=== PATIENT | female | born 1970 | race Caucasian/White ===

== ENCOUNTER → 2017-02-04 | Outpatient (CLI) | payer MEDICARE, OTHER ==
--- NOTE | 2017-02-05 14:45 | MM ---
Reason for exam: screening (asymptomatic). Last mammogram was performed 4 years ago. History: Patient is nulliparous. Family history of breast cancer in paternal grandmother. Physical Findings: A clinical breast exam by your physician is recommended on an annual basis and results should be correlated with mammographic findings. MG 3D Screening Mammo W/Cad Bilateral CC and MLO view(s) were taken. Prior study comparison: February 17, 2013, right diagnostic mammogram w/CAD. August 13, 2012, [facility] DIGITAL BILATERAL MAMMOGRAM w/CAD. The breast tissue is heterogeneously dense. This may lower the sensitivity of mammography. Finding: There are typically benign grouped/clustered calcifications in the middle position of the left breast. No significant changes in finding since February 17, 2013 and August 13, 2012. ASSESSMENT: Benign, BI-RAD 2 RECOMMENDATION: Routine screening mammogram of both breasts in 1 year.
== END | disposition home or self-care (01) ==
LOC: RADMAMWWP 14:45
PROVIDERS: ATTEND Family Medicine
DX: Z12.31 Encounter for screening mammogram for malignant neoplasm of breast (principal)
CPT/HCPCS: 77063; G0202

== ENCOUNTER → 2020-06-13 | Outpatient (CLI) | payer MEDICARE, OTHER ==
--- NOTE | 2020-06-13 15:21 | CONS ---
CONSULTATION Consultation note for trouble sleeping, possible obstructive sleep apnea. This is a 50-year-old female patient obese with features of obstructive sleep apnea yet she has various other comorbidities including ADD, hypertension, hyperlipidemia, RLS, iron deficiency and history of scoliosis. She does have issues with initiation and maintaining sleep. In terms of her sleep initiation, she has done some measures where she has been using tunes and relaxation techniques to get herself into sleep and she is able to generate sleep within 30 minutes and sometimes slightly more. She goes to bed around 11:30 p.m. However after falling sleep, she would wake up on multiple occasions. Ultimately she gets out of bed at around 8:30 a.m. in the morning. She tries not to take any naps during the day. She snores. She is quite uncomfortable. She is restless. She twitches and at times she wakes up because of discomfort in her hip which makes her quite uncomfortable and she has to reposition herself. She tries not to take naps, although she has done naps in the past. She is tired and fatigued throughout the day. No sleep paralysis. No hallucinations or cataplexy. She has history of ADD and she is on Strattera for now. In terms of her restlessness and twitching, she has been taking Requip 0.25 mg at bedtime. No recent weight gain or weight loss. No nocturnal chest pain or heartburn or shortness of breath. No episodes of waking up choking or gasping sensation. She has an irritable bladder and she wakes up in the morning and she tries to empty her bladder and she empties her bladder prior to going to sleep. PAST MEDICAL HISTORY: Attention deficit disorder, hypertension, hyperlipidemia, obesity, iron deficiency, vitamin D deficiency, irritable bladder, RLS, scoliosis and obesity. PAST SURGICAL HISTORY: Past surgical history includes tubes in her ears. DRUG ALLERGIES: CODEINE. OUTPATIENT MEDICATION LIST: Outpatient medication list includes: Strattera 60 mg p.o. daily, Nexium 40 mg p.o. daily, lisinopril 20 mg p.o. daily, multivitamin 1 tablet a day, fiber 1 tablet a day, Lipitor 20 mg p.o. daily, Requip 0.25 mg at bedtime, hydroxyzine 50 mg at bedtime as needed. SOCIAL HISTORY: The patient is a nonsmoker. No history of alcoholism. No history of IV drugs. FAMILY HISTORY: Her grandmother had cancer, unknown. Her father insomnia. Father had heart disease and coronary artery disease. REVIEW OF SYSTEMS: Fourteen-point review of system was done and positive findings are mentioned in history of present illness. PHYSICAL EXAMINATION: VITAL SIGNS: BP is 170/95, pulse 80, respirations 16, temperature 97.8, saturation 97% on room air. Height is 5 feet 1 inch. Weight is 198 and BMI 37.4. Neck size 15 inches. GENERAL APPEARANCE: Obese, calm, comfortable. HEAD: Atraumatic, normocephalic. NECK: Supple. There is no JVD. No goiter or neck masses, Mallampati class 4. She has micrognathia, some few chipped teeth can be also inspected. LUNGS: Diminished otherwise clear. HEART: Sounds are regular rate and rhythm. Normal S1, S2. No S3, no S4. No murmurs. ABDOMEN: Soft, nontender. No organomegaly. EXTREMITIES: No edema. No cyanosis or clubbing. IMPRESSION: 1. Sleep onset and maintenance insomnia. Comorbidities are many. Possible obstructive sleep apnea based on anatomic features and obesity and narrow neck with significant crowding of posterior pharynx with a Mallampati class 4. Nevertheless, other comorbidities could fragment her sleep in addition, which include pain, arthritis, restless legs syndrome. 2. History of attention deficit disorder. 3. Hyperlipidemia. 4. Hypertension. 5. Obesity with a body mass index of 37.4. 6. Irritable bladder. 7. Scoliosis. 8. History of restless legs syndrome maintained on Requip. PLAN: Will need a full polysomnogram to characterize her sleep quality. We need to look at her sleep onset, sleep maintenance, sleep efficiency and rule out any sleep breathing disorder and look for comorbidities that may fragment her sleep. Based on that, we will make further recommendations. Encourage weight loss. Optimize sleep hygiene measures. Continue with the measures that promote sleep which includes relaxation techniques and music therapy. Keep same medication. Will continue to follow. MMODL / IJN: [id number] /
== END | disposition home or self-care (01) ==
LOC: SLEEP 11:30
PROVIDERS: ATTEND Internal Medicine Critical Care Medicine
DX: G47.00 Insomnia, unspecified (principal); G25.81 Restless legs syndrome; M19.90 Unspecified osteoarthritis, unspecified site; E78.5 Hyperlipidemia, unspecified; I10 Essential (primary) hypertension; N32.89 Other specified disorders of bladder; M41.9 Scoliosis, unspecified; E66.9 Obesity, unspecified; Z68.37 Body mass index [BMI] 37.0-37.9, adult; Z86.59 Personal history of other mental and behavioral disorders; Z79.899 Other long term (current) drug therapy
CPT/HCPCS: 99211

== ENCOUNTER → 2020-09-27 | Outpatient (CLI) | payer MEDICARE, OTHER ==
[2020-09-27 14:38] VITALS: BP 145/96; PULSE 80; RESP 18; TEMP 97.8; BMI 36.6
--- NOTE | 2020-09-27 14:59 | P.HPBAR ---
Bariatric H&P - History & Physicial H&P Date: 09/27/20 History & Physicial: Visit/CC: initial visit Patient initial contact: Initial weight: Initial weight in pounds: Height: 5 ft 1 in Initial BMI: Last weight: Current weight: 87.997 kg Current weight in pounds: 194.00 Current BMI: 36.6 [place] body weight (based on NIH guidelines): 47.627 kg Excess body weight loss: The patient is a 50 year-old F who presents for Bariatric Assessment. DATE OF SERVICE: 09/27/2020 REASON FOR CONSULTATION: Initial bariatric evaluation. HISTORY OF PRESENT ILLNESS: Bernice Lopez is a 50-year-old female who comes with lifelong morbid obesity. She is looking into the gastric bypass. Her hi ghest weight is 203 pounds. She has tried weight loss of Slim Fast, Atkins diet. Her mother had obesity but now passed. She has family history of diabetes. She has diabetes. She has lifelong trouble with weight lost. She has heartburn. She denies surgery to the abdomen. She denies ulcerative colitis or Crohns disease. She had an upper scope in the past. She reports gastroesophageal reflux disease. She has lower back pain, scoliosis, hip pain right side, left knee pain, and has ankle pain. She has foot pain, bilateral. She reports heel spurs. Grandmother had breast cancer and aunt had cancer. She wants to get down to 150 pounds. She takes over the counter keto burn diet pills in the morning. She has thyroid problems. She wears a pain patch and reports it works. She developed hypertension as a result of her obesity. She present to me for the first time in consultation for morbid obesity. At height of 5 feet 1 inches, her ideal body weight is 131 pounds. Her highest weight is 203 pounds, BMI 38.4. She comes in 194 pounds. Her body mass index is 36.7. She is 63 pounds overweight. PAST MEDICAL HISTORY: 1. Morbid obesity due to excess calories 2. Body mass index of 38.4, initial 3. ADHD 4. Hyperlipidemia 5. Gastroesophageal reflux diseae 6. Hypertensive heart disease 7. Restless leg syndrome 8. Overactive bladder 9. Diabetes type II 10. Osteoarthritis lower back 11. Osteoarthritis right hip pain 12. Osteoarthritis left knee 13. Osteoarthritis ankle 14. Osteoarthritis bilateral feet 15. Thyroid disorder 16. Chronic pain syndrome 17. Scoliosis PAST SURGICAL HISTORY: 1. Tonsillectomy 2. Ear surgery HOME MEDICATIONS: Home Medications Medication Instructions Recorded Confirmed Atomoxetine HCl [Strattera] 60 mg PO DAILY 09/27/20 11/02/20 Atorvastatin [Lipitor] 10 mg PO PC-SUPPER 09/27/20 11/02/20 Esomeprazole Magnesium [NexIUM] 40 mg PO DAILY 09/27/20 11/02/20 Lisinopril [Prinivil] 20 mg PO DAILY 09/27/20 11/02/20 Multivitamins, Thera [Multivitamin 1 tab PO DAILY 09/27/20 11/02/20 (formulary)] Vitamin C/Biotin [Hair, Skin and 1 tab PO DAILY 09/27/20 11/02/20 Nails] hydrOXYzine HCL [Atarax] 50 mg PO HS 09/27/20 11/02/20 rOPINIRole HCL [Requip] 0.25 mg PO HS 09/27/20 11/02/20 Biotin 10,000 mcg PO DAILY 11/02/20 11/02/20 Fiber Supplement 4 tab PO DAILY 11/02/20 11/02/20 Keto Boost 1 tab PO QAM 11/02/20 11/02/20 Tolterodine ER [Detrol LA] 4 mg PO DAILY 11/02/20 11/02/20 ALLERGIES: Allergies Allergy/AdvReac Type Severity Reaction Status Date / Time codeine Allergy Unknown Verified 11/02/20 11:08 SOCIAL HISTORY: Denies past tobacco use. FAMILY HISTORY: No family history of ulcerative colitis disease or Crohn's disease. Family history of morbid obesity. No lupus in the family. No reports of stomach or esophageal cancer. Her mother had obesity but now passed. She has family history of diabetes. Grandmother had breast cancer and aunt had cancer. REVIEW OF ORGAN SYSTEMS: CONSTITUTIONAL: At height of 5 feet 1 inches, her ideal body weight is 131 pound s. Her highest weight is 203 pounds, BMI 38.4. She comes in 194 pounds. Her body mass index is 36.7. She is 63 pounds overweight. HEENT: Denies any active troubles with vision. Has deafness. ENDOCRINE: Has diabetes type 2. Has hypothyroidism. CARDIOVASCULAR: Denies reports of palpitations or heart attacks or chest pain. Has hypertensive heart disease. Has hyperlipidemia. RESPIRATORY: Has daytime somnolence. Has obstructive sleep apnea. GASTROINTESTINAL: Denies any bright red blood per rectum. No diarrhea. No constipation. Has gastroesophageal reflux disease. GENITOURINARY: Has bladder urgency. No recent blood in urine MUSCULOSKELETAL: Has lower back pain and joint pain. Has restless leg syndrome. Has scoliosis. NEURO: No headaches. No seizure disorders. Has neuropathy. PSYCH: Denies depression. No suicidal ideation. RHEUMATOLOGIC: No lupus. No rheumatoid arthritis. HEMATOLOGIC: Denies any abnormal bleeding or bruising. SKIN: No rash. No skin cancer. PHYSICAL EXAM: VITAL SIGNS: Height 5 foot 1 inches, weight 194 pounds. BMI 36.7 Vital Signs Temp 97.8 F 09/27/20 14:21 Pulse 80 09/27/20 14:21 Resp 18 09/27/20 14:21 BP 145/96 09/27/20 14:21 Pulse Ox GENERAL: Well-developed in no acute distress. HEENT: No scleral icterus. Extraocular movements grossly intact. Hears conversational speech. No nasal drainage. NECK: Supple without lymphadenopathy. CHEST: Nonlabored respirations with equal bilateral excursions. CARDIOVASCULAR: Regular rate and regular rhythm. Distal 2+ pulses. ABDOMEN: Obese, soft, nontender, nondistended. MUSCULOSKELETAL: No clubbing, cyanosis. NEURO: No focal or lateralizing signs. Cranial nerves 2 through 12 grossly within normal limits. PSYCH: Appropriate affect. Alert and oriented to person, place and time. SKIN: Good skin turgor. Well perfused. ASSESSMENT: 1. Morbid obesity due to excess calories 2. Body mass index of 38.4, initial 3. ADHD 4. Hyperlipidemia 5. Gastroesophageal reflux diseae 6. Hypertensive heart disease 7. Restless leg syndrome 8. Overactive bladder 9. Diabetes type II 10. Osteoarthritis lower back 11. Osteoarthritis right hip pain 12. Osteoarthritis left knee 13. Osteoarthritis ankle 14. Osteoarthritis bilateral feet 15. Thyroid disorder 16. Chronic pain syndrome 17. Scoliosis PLAN: 1. Surgical options including a band, gastric bypass, sleeve gastrectomy were described in detail. Alternatives such as gastric balloon including duodenal sw itch were described. She is looking into the gastric bypass. 2. The [place] bariatric surgical collaborative data and outcomes calculator were described with surgical options. 3. Recommend a bariatric metabolic panel to evaluate for micro- including macronutrient deficiencies. 4. For history of daytime somnolence, recommend evaluation and treatment for sleep apnea. 5. Dietary surveillance and counseling was reviewed. Increased protein intake over 65 grams daily advised. 6. Will need cardiac risk assessment. 7. Recommend medical risk assessment. 8. Psych assessment per insurance guidelines. 9. Recommend upper endoscopy. 10. Recommend 12-lead EKG. 11. Recommend esophagram 12. Recommend urine nicotine testing for history of tobacco abuse disorder 13. Recommend urine drug screen Thank you for this consultation. Past Medical History Past Medical History: Diabetes Mellitus, GERD/Reflux, Hearing Disorder / Deafness, Hyperlipidemia, Hypertension, Sleep Apnea/CPAP/BIPAP, Thyroid Disorder Additional Past Medical History / Comment(s): DM type 1. hypothyroidism. hearing aid bilat. History of Any Multi-Drug Resistant Organisms: None Reported Past Surgical History: Ear Surgery, Tonsillectomy Additional Past Surgical History / Comment(s): tubes in ears bilateral. Past Anesthesia/Blood Transfusion Reactions: No Reported Reaction Past Psychological History: ADD/ADHD Smoking Status: Never smoker, Second hand smoke exposure Past Alcohol Use History: None Reported Past Drug Use History: None Reported Surgical - Exam Vital Signs Temp Pulse Resp BP 97.8 F 80 18 145/96 09/27/20 14:21 09/27/20 14:21 09/27/20 14:21 09/27/20 14:21 Results - Labs 09/27/20 15:12 09/27/20 15:12 Bariatric Checklist Checklist: Plan: Checklist: EGD: 1. Hiatal hernia: 2. H. Pylori: HgbA1c: Vitamin D: Smoking: Primary care physician referral: Dr. Paez ([place]) Psychiatry clearance: Cardiology clearance: Sleep study: Diet journal: VTE risk score: VTE risk level: Rehab needs at discharge:
[2020-09-27 15:59] LABS: HCT 43.8 % (34.0-46.0); MCH 29.4 pg (25.0-35.0); MCHC 34.2 g/dL (31.0-37.0); MCV 86.1 fL (80.0-100.0); Platelet Count 273 k/uL (150-450); RBC 5.09 m/uL (3.80-5.40); RDW 13.4 % (11.5-15.5); WBC 7.6 k/uL (3.8-10.6)
[2020-09-28 00:13] LABS: INR 0.95 (0.90-1.11); Partial Thromboplastin Time 27.6 sec (23.5-31.0); Prothrombin Time 10.4 sec (9.9-11.9)
[2020-09-28 10:15] LABS: Ferritin 52.6 ng/mL (10.0-291.0)
[2020-09-28 11:00] LABS: % Iron Saturation 21.95 (12.00-45.00); ALT 33 U/L (8-44); AST 31 U/L (13-35); African American GFR (CKD) 77.2 (60.0-200.0); Albumin/Globulin Ratio 2.35 (1.60-3.17); Alkaline Phosphatase 137 U/L (41-126); Calcium 9.7 mg/dL (8.7-10.3); Carbon Dioxide 26.2 mmol/L (21.6-31.8); Chloride 104 mmol/L (96-109); Chol/HDL Ratio 3.73; Cholesterol 190 mg/dL (0-200); Folate, Serum >24.0 ng/mL; Glucose 133 mg/dL (70-110); Iron 72 ug/dL (50-170); LDL Cholesterol,Calculated 101.4 mg/dL (0.0-131.0); Magnesium 2.1 mg/dL (1.5-2.4); Non-African American GFR(CKD) 66.6 (60.0-200.0); Phosphorus 3.5 mg/dL (2.4-5.1); Potassium 3.8 mmol/L (3.5-5.5); Sodium 142 mmol/L (135-145); Total Bilirubin 0.5 mg/dL (0.3-1.2); Total Iron Binding Capacity 328 ug/dL (228-460); Total Protein 6.7 g/dL (6.2-8.2)
[2020-09-28 14:27] LABS: Zinc, Serum 78 ug/dL (60-130)
[2020-09-29 07:19] LABS: Vitamin A 63 ug/dL (38-106)
[2020-09-29 13:23] LABS: Vit B1(Thiamine) 95 ug/L (38-122)
[2020-09-29 16:17] LABS: Anabasine Urine <2.0 ng/mL (<2.0)
[2020-10-05 03:27] LABS: Selenium 113 mcg/L (63-160)
== END | disposition home or self-care (01) ==
LOC: BARWHC3 12:59
PROVIDERS: ATTEND Surgery Plastic and Reconstructive Surgery
DX: E66.01 Morbid (severe) obesity due to excess calories (principal); E78.5 Hyperlipidemia, unspecified; K21.9 Gastro-esophageal reflux disease without esophagitis; E11.9 Type 2 diabetes mellitus without complications; I11.9 Hypertensive heart disease without heart failure; F90.9 Attention-deficit hyperactivity disorder, unspecified type; N32.81 Overactive bladder; G47.61 Periodic limb movement disorder; M47.9 Spondylosis, unspecified; M16.11 Unilateral primary osteoarthritis, right hip; M17.12 Unilateral primary osteoarthritis, left knee; M19.071 Primary osteoarthritis, right ankle and foot; M19.072 Primary osteoarthritis, left ankle and foot; G89.4 Chronic pain syndrome; M41.9 Scoliosis, unspecified; E03.9 Hypothyroidism, unspecified; Z88.2 Allergy status to sulfonamides; Z79.899 Other long term (current) drug therapy
CPT/HCPCS: 84255; 84134; 84425; 80061; 80053; 82607; 82728; 82525; 82746; 83540; 83550; 83735; 84100; 84443; 84590; 84630; 85027; 85610; 85730; 82306; 83970; 83036; 93005; G0480; G0463; 80323; 99203

== ENCOUNTER 2020-11-06 07:18 | Day surgery (SDC) | payer MEDICARE, OTHER ==
[2020-11-02 11:25] VITALS: BMI 36.1
[~2020-11-06 07:18] MED LIST: LACTATED RINGERS 1,000 ML IV SCH; LIDOCAINE 1% (10MG/ML) FOR IV START INTRADERMA PRN
[2020-11-06 07:54] VITALS: RESP 16; TEMP 98.7
--- NOTE | 2020-11-06 08:04 | P.GSHP ---
History of Present Illness H&P Date: 11/06/20 CHIEF COMPLAINT: GERD HISTORY OF PRESENT ILLNESS: The patient is a 50-year-old female who presents reports gastroesophageal reflux disease. Upper endoscopy was offered for further evaluation and management. PAST MEDICAL HISTORY: Please see list. PAST SURGICAL HISTORY: Please see list. MEDICATIONS: Please see list. ALLERGIES: Please see list. SOCIAL HISTORY: No illicit drug use FAMILY HISTORY: No reports of Crohn disease or ulcerative colitis. REVIEW OF ORGAN SYSTEMS: CONSTITUTIONAL: No reports of fevers or chills. GI: Denies any blood in stools or constipation. PHYSICAL EXAM: VITAL SIGNS: Stable GENERAL: Well-developed and pleasant in no acute distress. HEENT: No scleral icterus. Extraocular movements grossly intact. Moist buccal mucosa. NECK: Supple without lymphadenopathy. CHEST: Unlabored respirations. Equal bilateral excursions. CARDIOVASCULAR: Regular rate and rhythm. Distal 2+ pulses. ABDOMEN: Soft, nondistended. MUSCULOSKELETAL: No clubbing, cyanosis, or edema. ASSESSMENT: 1. Gastroesophageal reflux disease PLAN: 1. Recommend proceeding with an upper endoscopy Past Medical History Past Medical History: GERD/Reflux, Hearing Disorder / Deafness, Hyperlipidemia, Hypertension, Osteoarthritis (OA), Skin Disorder, Thyroid Disorder Additional Past Medical History / Comment(s): constipation, psoriasis, History of Any Multi-Drug Resistant Organisms: None Reported Past Surgical History: Ear Surgery Additional Past Surgical History / Comment(s): tubes in ears bilateral. Past Anesthesia/Blood Transfusion Reactions: No Reported Reaction Past Psychological History: ADD/ADHD, Anxiety Smoking Status: Never smoker Past Alcohol Use History: None Reported Past Drug Use History: None Reported - Past Family History Mother Family Medical History: No Reported History Medications and Allergies Home Medications Medication Instructions Recorded Confirmed Type Atomoxetine HCl [Strattera] 60 mg PO DAILY 09/27/20 11/02/20 History Atorvastatin [Lipitor] 10 mg PO PC-SUPPER 09/27/20 11/02/20 History Esomeprazole Magnesium [NexIUM] 40 mg PO DAILY 09/27/20 11/02/20 History Lisinopril [Prinivil] 20 mg PO DAILY 09/27/20 11/02/20 History Multivitamins, Thera [Multivitamin 1 tab PO DAILY 09/27/20 11/02/20 History (formulary)] Vitamin C/Biotin [Hair, Skin and 1 tab PO DAILY 09/27/20 11/02/20 History Nails] hydrOXYzine HCL [Atarax] 50 mg PO HS 09/27/20 11/02/20 History rOPINIRole HCL [Requip] 0.25 mg PO HS 09/27/20 11/02/20 History Biotin 10,000 mcg PO DAILY 11/02/20 11/02/20 History Fiber Supplement 4 tab PO DAILY 11/02/20 11/02/20 History Keto Boost 1 tab PO QAM 11/02/20 11/02/20 History Tolterodine ER [Detrol LA] 4 mg PO DAILY 11/02/20 11/02/20 History Allergies Allergy/AdvReac Type Severity Reaction Status Date / Time codeine Allergy Unknown Verified 11/02/20 11:08 Surgical - Exam Vital Signs Temp Pulse Resp BP Pulse Ox 98.7 F 73 16 151/92 98 11/06/20 07:53 11/06/20 07:53 11/06/20 07:53 11/06/20 07:53 11/06/20 07:53
[2020-11-06] MEDS ORDERED: LACTATED RINGERS 1,000 ML IV ONE ×2 (08:08)
[2020-11-06] MEDS ORDERED: LIDOCAINE 1% INJ 10MG/ML (20 ML MDV) ONE (08:09)
[2020-11-06] MEDS ORDERED: PROPOFOL 10 MG/ML 20 ML VIAL IV ONE (08:09)
--- NOTE | 2020-11-06 08:44 | P.PCN ---
Date of Procedure: 11/06/20 Description of Procedure: PREOPERATIVE DIAGNOSIS: Gastroesophageal reflux disease. Morbid obesity. POSTOPERATIVE DIAGNOSIS: Morbid obesity. Gastritis. Gastroesophageal reflux disease. Gastroparesis OPERATION: Esophagogastroduodenoscopy with biopsies along antrum. SURGEON: Ольга Pierre MD ANESTHESIA: MAC. INDICATIONS: The patient is a 50-year-old female who presents with a history of reflux disease. Benefits and risks of the procedure were described. Informed consent was obtained. DESCRIPTION: The patient was brought into the endoscopy suite and laid in the left lateral decubitus position. An Olympus gastroscope was passed along the posterior oropharynx down to the distal esophagus where the squamocolumnar junction was encountered at 35 cm from the incisors. The stomach was entered and no bile reflux was found. Additional findings are listed below. Biopsies with cold forceps were obtained of the antrum. The first through third portion of the duodenum was examined and unremarkable. Retroflexion of the scope confirmed Hill grade 2 lower esophageal valve. The squamocolumnar junction demonstrated LA grade A erosive esophagitis. The stomach was desufflated. The patient tolerated the procedure well. FINDINGS: Squamocolumnar junction 35 cm from the incisors. Diaphragmatic hiatus at 35 cm. Moderate retained food suspicious for gastroparesis Hill grade 2 lower esophageal valve. LA grade A erosive esophagitis. No active duodenitis. Chronic gastritis RECOMMENDATIONS: Upper endoscopy as needed. Plan - Discharge Summary New Discharge Prescriptions: Continue Lisinopril [Prinivil] 20 mg PO DAILY Esomeprazole Magnesium [NexIUM] 40 mg PO DAILY hydrOXYzine HCL [Atarax] 50 mg PO HS Atomoxetine HCl [Strattera] 60 mg PO DAILY Biotin 10,000 mcg PO DAILY Keto Boost 1 tab PO QAM Vitamin C/Biotin [Hair, Skin and Nails] 1 tab PO DAILY Multivitamins, Thera [Multivitamin (formulary)] 1 tab PO DAILY Atorvastatin [Lipitor] 10 mg PO PC-SUPPER rOPINIRole HCL [Requip] 0.25 mg PO HS Tolterodine ER [Detrol LA] 4 mg PO DAILY Fiber Supplement 4 tab PO DAILY Discharge Medication List Atomoxetine HCl [Strattera] 60 mg PO DAILY 09/27/20 [History] Atorvastatin [Lipitor] 10 mg PO PC-SUPPER 09/27/20 [History] Esomeprazole Magnesium [NexIUM] 40 mg PO DAILY 09/27/20 [History] Lisinopril [Prinivil] 20 mg PO DAILY 09/27/20 [History] Multivitamins, Thera [Multivitamin (formulary)] 1 tab PO DAILY 09/27/20 [History] Vitamin C/Biotin [Hair, Skin and Nails] 1 tab PO DAILY 09/27/20 [History] hydrOXYzine HCL [Atarax] 50 mg PO HS 09/27/20 [History] rOPINIRole HCL [Requip] 0.25 mg PO HS 09/27/20 [History] Biotin 10,000 mcg PO DAILY 11/02/20 [History] Fiber Supplement 4 tab PO DAILY 11/02/20 [History] Keto Boost 1 tab PO QAM 11/02/20 [History] Tolterodine ER [Detrol LA] 4 mg PO DAILY 11/02/20 [History] [place] [facility]20 Patient Instructions/Handouts: Gastritis (ED), Gastroparesis (DC) Discharge Disposition: HOME SELF-CARE
[2020-11-06 08:52] VITALS: BP 131/91; PULSE 66
== END 2020-11-06 09:26 | disposition home or self-care (01) ==
LOC: ORWHC2ENDO 07:18
PROVIDERS: ATTEND Surgery Plastic and Reconstructive Surgery
DX: K21.9 Gastro-esophageal reflux disease without esophagitis (principal); K29.50 Unspecified chronic gastritis without bleeding; K31.84 Gastroparesis; E78.5 Hyperlipidemia, unspecified; I10 Essential (primary) hypertension; M19.90 Unspecified osteoarthritis, unspecified site; E07.9 Disorder of thyroid, unspecified; L40.9 Psoriasis, unspecified; F41.9 Anxiety disorder, unspecified; F90.9 Attention-deficit hyperactivity disorder, unspecified type; Z79.899 Other long term (current) drug therapy; Z88.5 Allergy status to narcotic agent
CPT/HCPCS: 81025; 88305; 43239; J2001; J2704

== ENCOUNTER → 2020-11-29 | Outpatient (CLI) | payer MEDICARE, OTHER ==
[2020-11-29 14:47] VITALS: BP 137/91; PULSE 85; RESP 18; TEMP 97.9; BMI 36.4
--- NOTE | 2020-11-29 15:07 | P.PN ---
Subjective Progress Note Date: 11/29/20 DATE OF SERVICE: 11/29/2020 CHIEF COMPLAINT: Morbid obesity HISTORY OF PRESENT ILLNESS: Bernice Lopez is a 50-year-old female who comes with lifelong morbid obesity. She is looking into the gastric bypass. She has lower back pain, scoliosis, hip pain right side, left knee pain, and has ankle pain. She developed hypertension as a result of her obesity. She has severe gastroesophageal reflux disease. She is pending psych clearance. She has diabetes type II as well. She is pending stress test. She presents today for further management of her morbid obesity. At height of 5 feet 1 inches, her ideal body weight is 131 pounds. Her highest weight is 203 pounds, BMI 38.4. She comes in 192 pounds from 194 pounds, 2 months ago. She has lost 1 pound in 2 months. Her body mass index is 36.5. She is 62 pounds overweight. PAST MEDICAL HISTORY: 1. Morbid obesity due to excess calories 2. Body mass index of 38.4, initial 3. ADHD 4. Hyperlipidemia 5. Gastroesophageal reflux diseae 6. Hypertensive heart disease 7. Restless leg syndrome 8. Overactive bladder 9. Diabetes type II 10. Osteoarthritis lower back 11. Osteoarthritis right hip pain 12. Osteoarthritis left knee 13. Osteoarthritis ankle 14. Osteoarthritis bilateral feet 15. Thyroid disorder 16. Chronic pain syndrome 17. Scoliosis PAST SURGICAL HISTORY: 1. Tonsillectomy 2. Ear surgery HOME MEDICATIONS: Home Medications Medication Instructions Recorded Confirmed Atomoxetine HCl [Strattera] 60 mg PO DAILY 09/27/20 11/02/20 Atorvastatin [Lipitor] 10 mg PO PC-SUPPER 09/27/20 11/02/20 Esomeprazole Magnesium [NexIUM] 40 mg PO DAILY 09/27/20 11/02/20 Lisinopril [Prinivil] 20 mg PO DAILY 09/27/20 11/02/20 Multivitamins, Thera [Multivitamin 1 tab PO DAILY 09/27/20 11/02/20 (formulary)] Vitamin C/Biotin [Hair, Skin and 1 tab PO DAILY 09/27/20 11/02/20 Nails] hydrOXYzine HCL [Atarax] 50 mg PO HS 09/27/20 11/02/20 rOPINIRole HCL [Requip] 0.25 mg PO HS 09/27/20 11/02/20 Biotin 10,000 mcg PO DAILY 11/02/20 11/02/20 Fiber Supplement 4 tab PO DAILY 11/02/20 11/02/20 Keto Boost 1 tab PO QAM 11/02/20 11/02/20 Tolterodine ER [Detrol LA] 4 mg PO DAILY 11/02/20 11/02/20 ALLERGIES: Allergies Allergy/AdvReac Type Severity Reaction Status Date / Time codeine Allergy Unknown Verified 11/02/20 11:08 SOCIAL HISTORY: Denies past tobacco use. FAMILY HISTORY: No family history of ulcerative colitis disease or Crohn's disease. Family history of morbid obesity. No lupus in the family. No reports of stomach or esophageal cancer. Her mother had obesity but now passed. She has family history of diabetes. Grandmother had breast cancer and aunt had cancer. REVIEW OF ORGAN SYSTEMS: CONSTITUTIONAL: At height of 5 feet 1 inches, her ideal body weight is 131 pounds. Her highest weight is 203 pounds, BMI 38.4. She comes in 194 pounds. Her body mass index is 36.7. She is 63 pounds overweight. HEENT: Denies any active troubles with vision. Has deafness. ENDOCRINE: Has diabetes type 2. Has hypothyroidism. CARDIOVASCULAR: Denies reports of palpitations or heart attacks or chest pain. Has hypertensive heart disease. Has hyperlipidemia. RESPIRATORY: Has daytime somnolence. Has obstructive sleep apnea. GASTROINTESTINAL: Denies any bright red blood per rectum. No diarrhea. No constipation. Has gastroesophageal reflux disease. GENITOURINARY: Has bladder urgency. No recent blood in urine MUSCULOSKELETAL: Has lower back pain and joint pain. Has restless leg syndrome. Has scoliosis. NEURO: No headaches. No seizure disorders. Has neuropathy. PSYCH: Denies depression. No suicidal ideation. RHEUMATOLOGIC: No lupus. No rheumatoid arthritis. HEMATOLOGIC: Denies any abnormal bleeding or bruising. SKIN: No rash. No skin cancer. PHYSICAL EXAM: VITAL SIGNS: Height 5 foot 1 inches, weight 193 pounds. BMI 36.5 Vital Signs Temp 97.9 F 11/29/20 14:40 Pulse 85 11/29/20 14:40 Resp 18 11/29/20 14:40 BP 137/91 11/29/20 14:40 Pulse Ox GENERAL: Well-developed in no acute distress. HEENT: No scleral icterus. Extraocular movements grossly intact. Hears conversational speech. No nasal drainage. NECK: Supple without lymphadenopathy. CHEST: Nonlabored respirations with equal bilateral excursions. CARDIOVASCULAR: Regular rate and regular rhythm. Distal 2+ pulses. ABDOMEN: Obese, soft, nontender, nondistended. MUSCULOSKELETAL: No clubbing, cyanosis. NEURO: No focal or lateralizing signs. Cranial nerves 2 through 12 grossly within normal limits. PSYCH: Appropriate affect. Alert and oriented to person, place and time. SKIN: Good skin turgor. Well perfused. LABS: Reviewed. Hgb A1c 6.0 and controlled. Triglycerides elevated. Vitamins without deficiences. EKG: Anterior infarct, age undetermined EGD FINDINGS: Squamocolumnar junction 35 cm from the incisors. Diaphragmatic hiatus at 35 cm. Moderate retained food suspicious for gastroparesis Hill grade 2 lower esophageal valve. LA grade A erosive esophagitis. No active duodenitis. Chronic gastritis Final Pathologic Diagnosis GASTRIC ANTRUM, BIOPSY: Minimal chronic gastritis. Helicobacter pylori organisms are not identified on routine H+E sections. ASSESSMENT: 1. Morbid obesity due to excess calories 2. Body mass index of 38.4, initial to 36.5 3. ADHD 4. Hyperlipidemia 5. Gastroesophageal reflux diseae 6. Hypertensive heart disease 7. Restless leg syndrome 8. Overactive bladder 9. Diabetes type II 10. Osteoarthritis lower back 11. Osteoarthritis right hip pain 12. Osteoarthritis left knee 13. Osteoarthritis ankle 14. Osteoarthritis bilateral feet 15. Thyroid disorder 16. Chronic pain syndrome 17. Scoliosis 18. Gastroparesis PLAN: 1. Her EKG was abnormal and she is pending stress test. 2. Hgb A1c is elevated but controlled for diabetes mellitus. 3. She has poor gastroesophageal reflux disease. At this time, she is looking into gastric bypass. 4. Recommend bariatric procedure for her severe gastroesophageal reflux disease, diabetes, and gastroparesis. Thank you for this consultation. Objective - Vital Signs Vital signs: Vital Signs Temp 97.9 F 11/29/20 14:40 Pulse 85 11/29/20 14:40 Resp 18 11/29/20 14:40 BP 137/91 11/29/20 14:40 Pulse Ox Intake & Output 11/28/20 11/29/20 11/29/20 18:59 06:59 18:59 Weight 87.543 kg
== END ==
LOC: BARWHC3 14:31
PROVIDERS: ATTEND Surgery Plastic and Reconstructive Surgery
DX: E66.01 Morbid (severe) obesity due to excess calories (principal); F90.9 Attention-deficit hyperactivity disorder, unspecified type; E78.5 Hyperlipidemia, unspecified; K21.9 Gastro-esophageal reflux disease without esophagitis; I11.9 Hypertensive heart disease without heart failure; G25.81 Restless legs syndrome; N32.81 Overactive bladder; M47.816 Spondylosis without myelopathy or radiculopathy, lumbar region; M16.11 Unilateral primary osteoarthritis, right hip; M17.12 Unilateral primary osteoarthritis, left knee; M19.072 Primary osteoarthritis, left ankle and foot; M19.071 Primary osteoarthritis, right ankle and foot; E07.9 Disorder of thyroid, unspecified; G89.4 Chronic pain syndrome; M41.9 Scoliosis, unspecified; E11.43 Type 2 diabetes mellitus with diabetic autonomic (poly)neuropathy; K31.84 Gastroparesis; Z68.38 Body mass index [BMI] 38.0-38.9, adult; Z79.899 Other long term (current) drug therapy; Z88.5 Allergy status to narcotic agent
CPT/HCPCS: 99211